=== PATIENT | female | born 1945 | race African-American/Black ===

== ENCOUNTER 2017-01-08 08:45 | Day surgery (SDC) | payer BC ==
--- NOTE | ~2017-01-08 | EGD ---
EGD REPORT [facility] [address] [place] [address] NAME: ELIZABETH PERRY : [birth year] STATUS : REG [facility] PAT#: [id number] AGE: 71 ADM/REG DATE : 01/08/17 MR#: [id number] REPORT SERV DATE: 01/08/17 DICTATED BY: ROLA GUEVARA DATE: 01/08/17 REPORT STATUS : Draft TRANSCRIBED BY: [employer] DATE: 01/08/17 [facility] Patient Name: Elizabeth Perry Date of : 1945 Attending MD: ROLA GUEVARA MD Procedure Date No Time: 01/08/2017 Procedure: Colonoscopy Indications: Screening for colorectal malignant neoplasm Referring MD: Ariadna Rossi Medicines: as per anesthesia Complications: No immediate complications. Procedure: Pre-Anesthesia Assessment: - ASA Grade Assessment: III - A patient with severe systemic disease. After I obtained informed consent, the scope was passed under direct vision. Throughout the procedure, the patient's blood pressure, pulse, and oxygen saturations were monitored continuously. The PCF [id number] was introduced through the anus and advanced to the cecum, identified by appendiceal orifice and ileocecal valve. The colonoscopy was somewhat difficult due to significant looping and a tortuous colon. The patient tolerated the procedure. The quality of the bowel preparation was adequate to identify polyps. Findings: The perianal and digital rectal examinations were normal. A sessile polyp was found in the ascending colon. The polyp was 3 mm in size. The polyp was removed with a cold biopsy forceps. Resection and retrieval were complete. Internal hemorrhoids were found during endoscopy and were mild. Impression: - One 3 mm polyp in the ascending colon. Resected and retrieved. - Internal hemorrhoids. Recommendation: - Await pathology results. - Repeat colonoscopy for surveillance based on pathology results. Procedure Code(s): --- Professional --- 77247, Colonoscopy, flexible, proximal to splenic flexure; with biopsy, single or multiple Diagnosis Code(s): --- Professional --- EGD REPORT [facility] [address] [place] [address] [place] [address] NAME: ELIZABETH PERRY : [birth year] STATUS : REG [facility] PAT#: [id number] AGE: 71 ADM/REG DATE : 01/08/17 MR#: [id number] REPORT SERV DATE: 01/08/17 DICTATED BY: ROLA GUEVARA DATE: 01/08/17 REPORT STATUS : Draft TRANSCRIBED BY: [employer] DATE: 01/08/17 D12.2, Benign neoplasm of ascending colon K64.8, Other hemorrhoids Z12.11, Encounter for screening for malignant neoplasm of colon CPT copyright 2013 [employer]. All rights reserved. The codes documented in this report are preliminary and upon veterinary virus serum inspector review may be revised to meet current compliance requirements. ROLA GUEVARA MD 01/08/2017 11:28 AM This report has been signed electronically. Number of Addenda: 0 Note Initiated On: 01/08/2017 10:42 AM Scope Withdrawal Time 0 hours 7 minutes 27 seconds [address] [place] [address]
[~2017-01-08 08:45] MED LIST: DIOVAN HC1 PO; FARXIGA5 PO; NORV25 PO; TOUJEO PO; [UNRECOGNIZED DRUG - OTHER]
== END 2017-01-08 23:59 | disposition home or self-care (01) ==
LOC: DMU 08:45
PROVIDERS: Internal Medicine Gastroenterology
PROC: 0DBK8ZZ Excision of Ascending Colon, Via Natural or Artificial Opening Endoscopic (ICD-10-PCS; principal; 2017-01-08 10:00)
DX: Z12.11 Encounter for screening for malignant neoplasm of colon (principal); D12.2 Benign neoplasm of ascending colon; K64.8 Other hemorrhoids; E11.9 Type 2 diabetes mellitus without complications; I10 Essential (primary) hypertension; M19.90 Unspecified osteoarthritis, unspecified site; G47.33 Obstructive sleep apnea (adult) (pediatric); E89.0 Postprocedural hypothyroidism; F32.9 Major depressive disorder, single episode, unspecified; F41.9 Anxiety disorder, unspecified; E78.00 Pure hypercholesterolemia, unspecified; Z87.891 Personal history of nicotine dependence; Z90.711 Acquired absence of uterus with remaining cervical stump; Z88.5 Allergy status to narcotic agent; Z88.6 Allergy status to analgesic agent; Z79.899 Other long term (current) drug therapy; Z79.4 Long term (current) use of insulin
CPT/HCPCS: 82962; 88305